=== PATIENT | male | born 1975 | race Caucasian/White ===

== ENCOUNTER 2017-11-02 06:03 | Inpatient (IN) | payer SELFPAY ==
[~2017-11-02] VITALS: Ht 165.1 cm; Wt 76.9 kg
[2017-11-02] MEDS ORDERED: NITROGLYCERIN 0.4MG TABLET SL SL PRN (06:45)
[2017-11-02] MEDS ORDERED: ASPIRIN 81MG TABLET PO ONE (06:45)
[2017-11-02 07:41] LABS: BASOPHILS % 0.4 % (0.0-2.0); EOSINOPHILS % 0.4 % (0.0-5.0); HEMATOCRIT. 43.4 % (42.0-52.0); HEMOGLOBIN. 15.2 g/dL (14.0-18.0); LYMPHOCYTES % 12.4 % (20.0-50.0); MEAN CORPUSCULAR HEMOGLOBIN 32.9 pg (28.0-32.0); MEAN CORPUSCULAR VOLUME 93.8 fL (80.0-94.0); MONOCYTES % 7.8 % (2.0-8.0); RED BLOOD CELL COUNT 4.63 mill/uL (4.7-6.1); RED CELL DISTRIBUTION WIDTH 13.7 % (11.6-14.6)
[2017-11-02 07:43] LABS: CHLORIDE 101 mEq/L (98-107)
[2017-11-02 07:47] LABS: ETHANOL BLOOD < 10 mg/dL
[2017-11-02 07:50] LABS: *AMPHETAMINES SCREEN URINE PRESUMTIVE POSITIVE (NEGATIVE); *BARBITURATES SCREEN URINE NEGATIVE (NEGATIVE); CANNABINOID URINE SCREEN PRESUMTIVE POSITIVE (NEGATIVE); METHADONE URINE SCREEN NEGATIVE (NEGATIVE); OPIATES URINE SCREEN NEGATIVE (NEGATIVE); PHENCYCLIDINE URINE SCREEN NEGATIVE (NEGATIVE)
[2017-11-02 07:51] LABS: *BENZODIAZEPINES SCREEN URINE NEGATIVE (NEGATIVE); *COCAINE SCREEN URINE NEGATIVE (NEGATIVE)
[2017-11-02 08:02] LABS: INR 1.1; PARTIAL THROMBOPLASTIN TIME 27.5 sec (23.4-31.0); PROTHROMBIN TIME 11.2 sec (9.1-11.1)
[2017-11-02 08:22] LABS: PLATELET 161 x1000/uL (130-400)
[2017-11-02] MEDS ORDERED: POTASSIUM CHLORIDE 20MEQ TABLET SR PO ONE (08:30)
[2017-11-02] MEDS ORDERED: ENOXAPARIN 80MG/0.8ML SYR SUBCUT ONE (09:00)
[2017-11-02] MEDS ORDERED: CLONIDINE 0.2MG TABLET PO ONE (11:00)
[2017-11-02 12:00] VITALS: BP 153/100
[2017-11-02 12:39] VITALS: BP 153/100
[2017-11-02] MEDS ORDERED: CLONIDINE 0.1MG TABLET PO NR (14:30)
[2017-11-02 16:00] VITALS: BP 145/94
[2017-11-02 20:00] VITALS: BP 155/90
[2017-11-02 20:31] LABS: CHLORIDE 104 mEq/L (98-107)
[2017-11-03] VITALS (7 sets, daily range): BP systolic 149–166; BP diastolic 97–110
[2017-11-03] MEDS ORDERED: AMLODIPINE 10MG TABLET PO SCH ×2 (09:00)
[2017-11-03] MEDS ORDERED: ASPIRIN 81MG TABLET PO SCH (12:00)
[2017-11-03] MEDS ORDERED: POTASSIUM CHLORIDE 20MEQ TABLET SR PO PRN (14:15)
[2017-11-03 17:27] LABS: BASOPHILS % 0.5 % (0.0-2.0); EOSINOPHILS % 4.1 % (0.0-5.0); LYMPHOCYTES % 22.6 % (20.0-50.0); MEAN CORPUSCULAR HEMOGLOBIN 32.6 pg (28.0-32.0); MEAN CORPUSCULAR VOLUME 93.4 fL (80.0-94.0); MEAN PLATELET VOLUME 8.7 fl (7.4-10.4); MONOCYTES % 10.6 % (2.0-8.0); NEUTROPHILS % 62.2 % (40.0-76.0); PLATELET 151 x1000/uL (130-400); RED BLOOD CELL COUNT 4.61 mill/uL (4.7-6.1); RED CELL DISTRIBUTION WIDTH 13.6 % (11.6-14.6)
[2017-11-03 18:10] LABS: CHLORIDE 105 mEq/L (98-107)
[2017-11-03 18:19] LABS: CREATINE KINASE 726 IU/L (39-308)
[2017-11-03 18:23] LABS: CREATINE KINASE MB FRACTION 7.6 ng/mL (0.5-3.6)
[2017-11-03 18:25] LABS: T4 FREE 0.97 ng/dL (0.76-1.46)
== END 2017-11-03 17:15 | disposition home or self-care (01) | DRG 203 ==
LOC: EDBD 06:22 → ER 06:22 → 8WST 08:53 → EDBEDREQ 08:54 → EDBEDREQTM 08:54 → ENRESERV 11:38
PROVIDERS: ADMIT Family Medicine; ATTEND Family Medicine
DX: R07.9 Chest pain, unspecified (principal); F10.10 Alcohol abuse, uncomplicated; F14.90 Cocaine use, unspecified, uncomplicated; F17.200 Nicotine dependence, unspecified, uncomplicated; F60.89 Other specific personality disorders; I10 Essential (primary) hypertension; Z91.14 Patient's other noncompliance with medication regimen
CPT/HCPCS: 36415; 71045; 80053; 80061; 80305; 82550; 82553; 83036; 83880; 84439; 84443; 84484; 85025; 85379; 85610; 85730; 93005; 93306; 96372; 99291; G0482; J1650

== ENCOUNTER 2019-12-04 23:20 | Inpatient (IN) | payer MEDICAID ==
[~2019-12-04] VITALS: Ht 170.2 cm; Wt 121.1 kg
[2019-12-05] MEDS ORDERED: CLONIDINE 0.1MG TABLET PO ONE
[2019-12-05] MEDS ORDERED: NITROGLYCERIN OINT 1GM/INCH UDPKT TD ONE
[2019-12-05] MEDS ORDERED: ASPIRIN 81MG TABLET PO ONE
[2019-12-05 00:41] LABS: BASOPHILS % 0.6 % (0.0-2.0); EOSINOPHILS % 1.6 % (0.0-5.0); HEMATOCRIT. 44.5 % (42.0-52.0); HEMOGLOBIN. 15.4 g/dL (14.0-18.0); LYMPHOCYTES % 21.4 % (20.0-50.0); MEAN CORPUSCULAR HEMOGLOBIN 31.9 pg (28.0-32.0); MEAN CORPUSCULAR VOLUME 91.9 fL (80.0-94.0); MEAN PLATELET VOLUME 8.8 fl (7.4-10.4); MONOCYTES % 6.3 % (2.0-8.0); NEUTROPHILS % 70.1 % (40.0-76.0); PLATELET 162 x1000/uL (130-400); RED BLOOD CELL COUNT 4.84 mill/uL (4.7-6.1); RED CELL DISTRIBUTION WIDTH 14.2 % (11.6-14.6)
[2019-12-05 00:49] LABS: CHLORIDE 103 mEq/L (98-107)
[2019-12-05 00:51] LABS: INR 1.1; PROTHROMBIN TIME 11.7 sec (9.6-11.0)
[2019-12-05 00:52] LABS: ETHANOL BLOOD < 10 mg/dL
[2019-12-05] MEDS ORDERED: POTASSIUM CHLORIDE 20MEQ TABLET SR PO NR (01:00)
[2019-12-05] MEDS ORDERED: LABETALOL 5MG/ML SYR 20 MG/4 ML SYRINGE IV ONE (02:00)
[2019-12-05 04:00] VITALS: BP 166/111
[2019-12-05 05:38] VITALS: BP 166/111
[2019-12-05] MEDS ORDERED: MORPHINE SULFATE 2 MG/ML CPJ (NOT FOR IM USE) IV PRN (06:00)
[2019-12-05] MEDS ORDERED: LISINOPRIL 20MG TABLET PO SCH ×2 (06:00→09:00)
[2019-12-05] MEDS ORDERED: NITROGLYCERIN OINT 1GM/INCH UDPKT TD NR (06:30)
[2019-12-05 08:00] VITALS: BP 134/77
[2019-12-05] MEDS ORDERED: ENOXAPARIN 40MG/0.4ML SYR SUBCUT SCH ×2 (09:00)
[2019-12-05] MEDS ORDERED: ASPIRIN 325MG EC TABLET PO SCH (09:00)
[2019-12-05] MEDS ORDERED: METOPROLOL TARTRATE 50MG TABLET PO SCH (09:00)
[2019-12-05] MEDS ORDERED: CLONIDINE 0.1MG TABLET PO PRN (09:00)
[2019-12-05] MEDS ORDERED: POTASSIUM CHLORIDE 20MEQ TABLET SR PO SCH (09:00)
[2019-12-05 11:48] VITALS: BP 137/81
[2019-12-05 12:53] LABS: CHLORIDE 103 mEq/L (98-107)
[2019-12-05 12:59] LABS: LDL CHOLESTEROL 105 mg/dL (5-100)
[2019-12-05 13:01] LABS: HDL CHOLESTEROL 51 mg/dL (40-59)
[2019-12-05] MEDS ORDERED: NITROGLYCERIN OINT 1GM/INCH UDPKT TD SCH (14:00)
[2019-12-05 15:39] VITALS: BP 163/99
[2019-12-05 16:13] LABS: BASOPHILS % 0.6 % (0.0-2.0); EOSINOPHILS % 1.9 % (0.0-5.0); HEMATOCRIT. 43.5 % (42.0-52.0); HEMOGLOBIN. 15.1 g/dL (14.0-18.0); LYMPHOCYTES % 19.1 % (20.0-50.0); MEAN CORPUSCULAR HEMOGLOBIN 31.9 pg (28.0-32.0); MEAN CORPUSCULAR VOLUME 92.1 fL (80.0-94.0); MEAN PLATELET VOLUME 9.1 fl (7.4-10.4); MONOCYTES % 6.5 % (2.0-8.0); NEUTROPHILS % 71.9 % (40.0-76.0); PLATELET 173 x1000/uL (130-400); RED BLOOD CELL COUNT 4.72 mill/uL (4.7-6.1); RED CELL DISTRIBUTION WIDTH 14.1 % (11.6-14.6)
[2019-12-06] MEDS ORDERED: LISINOPRIL 40MG TABLET PO SCH (09:00)
[2019-12-06] MEDS ORDERED: ENOXAPARIN 30MG/0.3ML SYR SUBCUT SCH (09:00)
== END 2019-12-05 18:05 | disposition left against medical advice (07) | DRG 199 ==
LOC: ER 23:20 → 6WST 12-05 01:19 → EDBEDREQTM 12-05 01:56 → EDBEDREQ 12-05 01:56 → ENRESERV 12-05 02:23
PROVIDERS: ADMIT Internal Medicine; ATTEND Internal Medicine
DX: I16.0 Hypertensive urgency (principal); I21.A1 Myocardial infarction type 2; K76.0 Fatty (change of) liver, not elsewhere classified; E87.6 Hypokalemia; R74.01 Elevation of levels of liver transaminase levels; I45.10 Unspecified right bundle-branch block; F10.10 Alcohol abuse, uncomplicated; F14.10 Cocaine abuse, uncomplicated; E66.9 Obesity, unspecified; Z53.29 Procedure and treatment not carried out because of patient's decision for other reasons; E78.5 Hyperlipidemia, unspecified; Z91.013 Allergy to seafood; F17.210 Nicotine dependence, cigarettes, uncomplicated; Z71.6 Tobacco abuse counseling; Z71.41 Alcohol abuse counseling and surveillance of alcoholic; Z68.41 Body mass index [BMI] 40.0-44.9, adult; Z71.3 Dietary counseling and surveillance
CPT/HCPCS: 36415; 71045; 76700; 80048; 80053; 80061; 80320; 83036; 83880; 84484; 85025; 93005; 93306; 99291; J1650; J2270; G0480

== ENCOUNTER 2019-12-05 21:11 | Inpatient (IN) | payer MEDICAID, OTHER ==
[~2019-12-05] VITALS: Ht 175.3 cm; Wt 120.0 kg
[2019-12-05 23:29] LABS: CHLORIDE 105 mEq/L (98-107)
[2019-12-05 23:31] LABS: HEMATOCRIT. 42.8 % (42.0-52.0); HEMOGLOBIN. 14.7 g/dL (14.0-18.0); MEAN CORPUSCULAR HEMOGLOBIN 31.7 pg (28.0-32.0); MEAN CORPUSCULAR VOLUME 92.5 fL (80.0-94.0); MEAN PLATELET VOLUME 9.1 fl (7.4-10.4); PLATELET 155 x1000/uL (130-400); RED BLOOD CELL COUNT 4.63 mill/uL (4.7-6.1); RED CELL DISTRIBUTION WIDTH 14.4 % (11.6-14.6)
[2019-12-05 23:33] LABS: ETHANOL BLOOD < 10 mg/dL
[2019-12-05 23:35] LABS: INR 1.1; PROTHROMBIN TIME 11.4 sec (9.6-11.0)
[2019-12-05 23:37] LABS: CREATINE KINASE 733 IU/L (39-308)
[2019-12-05 23:45] LABS: CLARITY URINE CLEAR (CLEAR); COLOR URINE DARK YELLOW (YELLOW); KETONES URINE TRACE (NEGATIVE); LEUKOCYTE ESTERASE URINE TRACE (NEGATIVE); NITRITE URINE NEGATIVE (NEGATIVE); OCCULT BLOOD URINE NEGATIVE (NEGATIVE); PH URINE 5.5 (4.5-8.0); PROTEIN URINE TRACE (NEGATIVE); SPECIFIC GRAVITY URINE 1.034 (1.005-1.030)
[2019-12-05 23:57] LABS: *AMPHETAMINES SCREEN URINE PRESUMTIVE POSITIVE (NEGATIVE); *BARBITURATES SCREEN URINE NEGATIVE (NEGATIVE); *BENZODIAZEPINES SCREEN URINE NEGATIVE (NEGATIVE); *COCAINE SCREEN URINE NEGATIVE (NEGATIVE); METHADONE URINE SCREEN NEGATIVE (NEGATIVE)
[2019-12-05 23:58] LABS: CANNABINOID URINE SCREEN PRESUMTIVE POSITIVE (NEGATIVE); OPIATES URINE SCREEN PRESUMTIVE POSITIVE (NEGATIVE); PHENCYCLIDINE URINE SCREEN NEGATIVE (NEGATIVE)
[2019-12-06 02:41] VITALS: BP 158/99
[2019-12-06 03:36] LABS: PLATELET ESTIMATE NORMAL
== END 2019-12-06 04:20 | disposition left against medical advice (07) | DRG 351 ==
LOC: ER 22:37 → 6WST 12-06 00:26 → EDBEDREQ 12-06 00:35 → EDBEDREQDT 12-06 00:35 → EDBEDREQTM 12-06 00:35 → EDBEDREQ 12-06 00:37 → ENRESERV 12-06 02:23
PROVIDERS: ADMIT Internal Medicine; ATTEND Internal Medicine
DX: M62.82 Rhabdomyolysis (principal); R06.02 Shortness of breath; E87.6 Hypokalemia; I10 Essential (primary) hypertension; K76.0 Fatty (change of) liver, not elsewhere classified; E78.5 Hyperlipidemia, unspecified; R53.1 Weakness; R74.01 Elevation of levels of liver transaminase levels; E66.9 Obesity, unspecified; Z71.6 Tobacco abuse counseling; Z71.41 Alcohol abuse counseling and surveillance of alcoholic; Z71.3 Dietary counseling and surveillance; I25.2 Old myocardial infarction; Z91.013 Allergy to seafood; F15.10 Other stimulant abuse, uncomplicated; Z68.39 Body mass index [BMI] 39.0-39.9, adult; R77.8 Other specified abnormalities of plasma proteins
CPT/HCPCS: 36415; 71045; 80053; 80305; 80320; 81003; 82550; 83880; 84484; 85025; 93005; 99285; G0480

== ENCOUNTER 2020-05-06 00:38 | Inpatient (IN) | payer MEDICAID, OTHER ==
[~2020-05-06] VITALS: Ht 325.1 cm; Wt 117.9 kg
[2020-05-06] MEDS ORDERED: MORPHINE SULFATE 4 MG/ML CPJ (NOT FOR IM USE) IV ONE (01:15)
[2020-05-06 01:44] LABS: BASOPHILS % 0.5 % (0.0-2.0); EOSINOPHILS % 1.4 % (0.0-5.0); HEMATOCRIT. 43.9 % (42.0-52.0); HEMOGLOBIN. 15.2 g/dL (14.0-18.0); LYMPHOCYTES % 25.3 % (20.0-50.0); MEAN CORPUSCULAR HEMOGLOBIN 31.5 pg (28.0-32.0); MEAN CORPUSCULAR VOLUME 90.6 fL (80.0-94.0); MEAN PLATELET VOLUME 8.5 fl (7.4-10.4); MONOCYTES % 11.6 % (2.0-8.0); NEUTROPHILS % 61.2 % (40.0-76.0); PLATELET 182 x1000/uL (130-400); RED BLOOD CELL COUNT 4.84 mill/uL (4.7-6.1); RED CELL DISTRIBUTION WIDTH 14.4 % (11.6-14.6)
[2020-05-06 01:46] LABS: CHLORIDE 101 mEq/L (98-107)
[2020-05-06 01:49] LABS: ETHANOL BLOOD < 10 mg/dL
[2020-05-06 01:49] LABS: *AMPHETAMINES SCREEN URINE PRESUMTIVE POSITIVE (NEGATIVE); *BARBITURATES SCREEN URINE NEGATIVE (NEGATIVE); *BENZODIAZEPINES SCREEN URINE NEGATIVE (NEGATIVE); *COCAINE SCREEN URINE NEGATIVE (NEGATIVE); CANNABINOID URINE SCREEN PRESUMTIVE POSITIVE (NEGATIVE); OPIATES URINE SCREEN NEGATIVE (NEGATIVE); PHENCYCLIDINE URINE SCREEN NEGATIVE (NEGATIVE)
[2020-05-06 01:50] LABS: METHADONE URINE SCREEN NEGATIVE (NEGATIVE)
[2020-05-06] MEDS ORDERED: IOHEXOL-300 100 ML BOTTLE ONE (02:26)
[2020-05-06] MEDS ORDERED: LISINOPRIL 40MG TABLET PO ONE (02:30)
[2020-05-06] MEDS ORDERED: LABETALOL HCL 20MG/4ML CARPUJECT IV ONE (02:30)
[2020-05-06] MEDS ORDERED: ASPIRIN 325MG EC TABLET PO NR (02:30)
[2020-05-06] MEDS ORDERED: LABETALOL 5MG/ML SYR 20 MG/4 ML SYRINGE IV NR ×2 (02:30→04:00)
[2020-05-06] MEDS ORDERED: LORAZEPAM 1MG TABLET PO NR (04:00)
[2020-05-06] MEDS ORDERED: DOCUSATE SODIUM 100MG CAPSULE PO PRN (07:30)
[2020-05-06] MEDS ORDERED: LORAZEPAM 0.5MG TABLET PO PRN (07:30)
[2020-05-06] MEDS ORDERED: MAGNESIUM/ALUMINUM HYDROXIDE/SIMETHICONE 30ML UDC PO PRN (07:30)
[2020-05-06] MEDS ORDERED: ENOXAPARIN 40MG/0.4ML SYR SUBCUT SCH (07:30)
[2020-05-06] MEDS ORDERED: ACETAMINOPHEN 325MG TABLET PO PRN ×2 (07:30)
[2020-05-06] MEDS ORDERED: ONDANSETRON HCL 4MG/2ML INJ IV PRN (07:30)
[2020-05-06] MEDS ORDERED: IPRATROPIUM/ALBUTEROL 0.5-3(2.5)MG/3ML NEB NEB PRN (07:30)
[2020-05-06] MEDS ORDERED: KETOROLAC 15MG/ML VIAL IV PRN (07:30)
[2020-05-06] MEDS ORDERED: GUAIFENESIN 200MG/10ML SUGAR FREE UDC PO PRN (07:30)
[2020-05-06 08:28] LABS: VITAMIN B12 SERUM 217 pg/mL (211-911)
[2020-05-06 08:30] VITALS: BP 148/91
[2020-05-06 08:36] LABS: FOLIC ACID (FOLATE) SERUM > 20.00 ng/mL (>5.38)
[2020-05-06] MEDS: ASPIRIN 325MG EC TABLET PO SCH (09:54)
[2020-05-06] MEDS: ENOXAPARIN 30MG/0.3ML SYR SUBCUT SCH ×2 (09:54→20:17)
[2020-05-06] MEDS: FAMOTIDINE 20MG TABLET PO SCH ×2 (09:54→20:17)
[2020-05-06 10:00] VITALS: BP 148/91
[2020-05-06] MEDS ORDERED: POTASSIUM CHLORIDE 20MEQ/PACKET PO NR (10:15)
[2020-05-06 11:45] LABS: CREATINE KINASE MB FRACTION 13.6 ng/mL (0.5-3.6)
[2020-05-06 12:00] VITALS: BP 134/70
[2020-05-06] MEDS ORDERED: KCL 20MEQ/100ML PREMIX 100 ML IV NR (12:00)
[2020-05-06] MEDS: DILTIAZEM HCL 60MG TABLET PO SCH ×2 (12:14→18:06)
[2020-05-06] MEDS ORDERED: LISI2.5T47 MT (15:13)
[2020-05-06 15:31] VITALS: BP 164/93
[2020-05-06] MEDS: CLONIDINE 0.1MG TABLET PO PRN (15:37)
[2020-05-06 19:56] VITALS: BP 156/85
[2020-05-06 21:00] VITALS: BP 138/77
[2020-05-06] MEDS ORDERED: PNEUMOCOCCAL 23-VAL P-SAC VAC 0.5 ML IM ONE (21:00)
[2020-05-06] MEDS ORDERED: ZOLPIDEM TARTRATE 5MG TABLET PO PRN (21:00)
[2020-05-06] MEDS: NITROGLYCERIN 0.4MG TABLET SL SL PRN (21:00)
[2020-05-06] MEDS ORDERED: INFLUENZA VACCINE 05/PF 0.5 ML VIAL IM ONE (21:00)
[2020-05-07] VITALS: BP 142/80
[2020-05-07 04:00] VITALS: BP 119/80
[2020-05-07] MEDS: DILTIAZEM HCL 60MG TABLET PO SCH ×4 (05:27→17:11)
[2020-05-07 08:00] VITALS: BP 125/79
[2020-05-07] MEDS: ASPIRIN 325MG EC TABLET PO SCH (08:36)
[2020-05-07] MEDS: FAMOTIDINE 20MG TABLET PO SCH ×2 (08:36→21:13)
[2020-05-07] MEDS: ENOXAPARIN 30MG/0.3ML SYR SUBCUT SCH ×2 (08:37→21:14)
[2020-05-07 11:26] LABS: CREATINE KINASE MB FRACTION 8.8 ng/mL (0.5-3.6)
[2020-05-07 12:00] VITALS: BP 110/77
[2020-05-07 16:00] VITALS: BP 112/68
[2020-05-07] MEDS: NITROGLYCERIN 0.4MG TABLET SL SL PRN (17:12)
[2020-05-07 20:00] VITALS: BP 158/102
[2020-05-07] MEDS: CLONIDINE 0.1MG TABLET PO PRN (22:51)
[2020-05-08] VITALS: BP 146/98
[2020-05-08 04:00] VITALS: BP 139/84
[2020-05-08] MEDS: DILTIAZEM HCL 60MG TABLET PO SCH ×3 (06:43→12:36)
[2020-05-08 08:00] VITALS: BP 135/90
[2020-05-08] MEDS: ENOXAPARIN 30MG/0.3ML SYR SUBCUT SCH (09:14)
[2020-05-08] MEDS: FAMOTIDINE 20MG TABLET PO SCH (09:14)
[2020-05-08] MEDS: ASPIRIN 325MG EC TABLET PO SCH (09:14)
[2020-05-08 09:34] VITALS: BP 135/90
== END 2020-05-08 13:40 | disposition home or self-care (01) | DRG 812 ==
LOC: ER 00:57 → 8WST 03:55 → EDBEDREQ 03:58 → ENRESERV 07:20 → ER 08:20 → 8WST 08:58
PROVIDERS: ADMIT Internal Medicine; ATTEND Internal Medicine
DX: T43.621A Poisoning by amphetamines, accidental (unintentional), initial encounter (principal); I21.4 Non-ST elevation (NSTEMI) myocardial infarction; I10 Essential (primary) hypertension; E66.01 Morbid (severe) obesity due to excess calories; I16.1 Hypertensive emergency; E87.6 Hypokalemia; F15.10 Other stimulant abuse, uncomplicated; F17.210 Nicotine dependence, cigarettes, uncomplicated; M62.82 Rhabdomyolysis; I20.1 Angina pectoris with documented spasm; Z68.1 Body mass index [BMI] 19.9 or less, adult; Z91.013 Allergy to seafood; Z71.51 Drug abuse counseling and surveillance of drug abuser; Y92.89 Other specified places as the place of occurrence of the external cause
CPT/HCPCS: 36415; 71045; 71275; 74174; 80053; 80061; 80305; 80320; 82550; 82553; 82607; 82746; 83540; 83550; 83880; 84484; 85025; 90686; 90732; 93005; 93306; 93970; 99291; J1650; J2270; J3480; J3490; J7040; Q9967; G0480

== ENCOUNTER 2020-07-22 23:49 | Emergency (ER) | payer MEDICAID ==
[~2020-07-22] VITALS: Ht 177.8 cm; Wt 127.0 kg
[~2020-07-22 23:49] MED LIST: LISI2.5T47 MT
[2020-07-22 23:51] VITALS: BP 150/100
[2020-07-23 03:18] LABS: BASOPHILS % 0.8 % (0.0-2.0); EOSINOPHILS % 0.5 % (0.0-5.0); HEMATOCRIT. 43.1 % (42.0-52.0); HEMOGLOBIN. 14.8 g/dL (14.0-18.0); MEAN CORPUSCULAR HEMOGLOBIN 31.2 pg (28.0-32.0); MEAN CORPUSCULAR VOLUME 90.9 fL (80.0-94.0); MEAN PLATELET VOLUME 8.9 fl (7.4-10.4); MONOCYTES % 11.4 % (2.0-8.0); NEUTROPHILS % 62.3 % (40.0-76.0); PLATELET 180 x1000/uL (130-400); RED BLOOD CELL COUNT 4.74 mill/uL (4.7-6.1); RED CELL DISTRIBUTION WIDTH 14.9 % (11.6-14.6)
[2020-07-23 03:22] LABS: CHLORIDE 104 mEq/L (98-107)
[2020-07-23] MEDS ORDERED: ASPIRIN 81MG TABLET PO ONE (03:45)
[2020-07-23] MEDS ORDERED: POTASSIUM CHLORIDE 20MEQ TABLET SR PO SCH (06:00)
[2020-07-23] MEDS ORDERED: ACETAMINOPHEN 325MG TABLET PO PRN (06:00)
[2020-07-23 06:30] LABS: CLARITY URINE CLEAR (CLEAR); COLOR URINE YELLOW (YELLOW); KETONES URINE 1+ (NEGATIVE); LEUKOCYTE ESTERASE URINE NEGATIVE (NEGATIVE); NITRITE URINE NEGATIVE (NEGATIVE); OCCULT BLOOD URINE NEGATIVE (NEGATIVE); PH URINE 5.5 (4.5-8.0); PROTEIN URINE 1+ (NEGATIVE); SPECIFIC GRAVITY URINE 1.033 (1.005-1.030)
[2020-07-23 07:15] LABS: *AMPHETAMINES SCREEN URINE PRESUMTIVE POSITIVE (NEGATIVE); *BARBITURATES SCREEN URINE NEGATIVE (NEGATIVE); *BENZODIAZEPINES SCREEN URINE NEGATIVE (NEGATIVE); *COCAINE SCREEN URINE NEGATIVE (NEGATIVE)
[2020-07-23 07:16] LABS: CANNABINOID URINE SCREEN PRESUMTIVE POSITIVE (NEGATIVE); METHADONE URINE SCREEN NEGATIVE (NEGATIVE); OPIATES URINE SCREEN NEGATIVE (NEGATIVE); PHENCYCLIDINE URINE SCREEN NEGATIVE (NEGATIVE)
[2020-07-23] MEDS ORDERED: DILTIAZEM HCL 30MG TABLET PO SCH (18:00)
== END 2020-07-23 07:03 | disposition left against medical advice (07) ==
LOC: ER 23:49 → CANBEDREQ 07-23 20:14
DX: R07.89 Other chest pain (principal); I11.9 Hypertensive heart disease without heart failure; E87.6 Hypokalemia; F15.10 Other stimulant abuse, uncomplicated; E80.6 Other disorders of bilirubin metabolism; F16.10 Hallucinogen abuse, uncomplicated; M79.18 Myalgia, other site; R68.83 Chills (without fever); F12.10 Cannabis abuse, uncomplicated; Z71.51 Drug abuse counseling and surveillance of drug abuser; Z71.41 Alcohol abuse counseling and surveillance of alcoholic; Z91.19 Patient's noncompliance with other medical treatment and regimen
CPT/HCPCS: 36415; 71045; 80053; 80305; 81003; 83880; 84484; 85025; 93005; 99285; Z7610

== ENCOUNTER 2020-08-10 12:44 | Emergency (ER) | payer MEDICAID ==
[~2020-08-10] VITALS: Ht 170.2 cm; Wt 104.0 kg
[2020-08-10 13:28] LABS: BASOPHILS % 0.3 % (0.0-2.0); EOSINOPHILS % 1.2 % (0.0-5.0); HEMATOCRIT. 40.3 % (42.0-52.0); HEMOGLOBIN. 14.2 g/dL (14.0-18.0); LYMPHOCYTES % 26.2 % (20.0-50.0); MEAN CORPUSCULAR HEMOGLOBIN 31.8 pg (28.0-32.0); MEAN CORPUSCULAR VOLUME 90.3 fL (80.0-94.0); MEAN PLATELET VOLUME 8.4 fl (7.4-10.4); MONOCYTES % 8.7 % (2.0-8.0); NEUTROPHILS % 63.6 % (40.0-76.0); PLATELET 152 x1000/uL (130-400); RED BLOOD CELL COUNT 4.46 mill/uL (4.7-6.1); RED CELL DISTRIBUTION WIDTH 14.9 % (11.6-14.6)
[2020-08-10 13:29] LABS: CHLORIDE 108 mEq/L (98-107)
[2020-08-10 13:34] LABS: ETHANOL BLOOD 182 mg/dL
[2020-08-10 16:02] VITALS: BP 166/77
== END 2020-08-10 16:23 | disposition home or self-care (01) ==
LOC: ER 12:53
DX: R07.89 Other chest pain (principal); F10.129 Alcohol abuse with intoxication, unspecified; Y90.6 Blood alcohol level of 120-199 mg/100 ml; M25.562 Pain in left knee; M25.561 Pain in right knee; R20.0 Anesthesia of skin; F15.10 Other stimulant abuse, uncomplicated; F12.10 Cannabis abuse, uncomplicated; I11.9 Hypertensive heart disease without heart failure; I25.2 Old myocardial infarction
CPT/HCPCS: 36415; 71045; 80053; 80320; 83880; 84484; 85025; 93005; 99285; G0480

== ENCOUNTER 2020-10-12 20:49 | Emergency (ER) | payer MEDICAID ==
[~2020-10-12] VITALS: Ht 172.7 cm; Wt 114.0 kg
[2020-10-12] MEDS ORDERED: ACETAMINOPHEN 325MG TABLET PO STA (23:07)
[2020-10-12] MEDS ORDERED: SODIUM CHLORIDE 0.9% 1,000 ML IV ONE (23:15)
[2020-10-12 23:51] LABS: BASOPHILS % 0.8 % (0.0-2.0); EOSINOPHILS % 6.1 % (0.0-5.0); HEMATOCRIT. 42.1 % (42.0-52.0); HEMOGLOBIN. 14.4 g/dL (14.0-18.0); LYMPHOCYTES % 41.4 % (20.0-50.0); MEAN CORPUSCULAR HEMOGLOBIN 31.5 pg (28.0-32.0); MEAN CORPUSCULAR VOLUME 91.8 fL (80.0-94.0); MEAN PLATELET VOLUME 9.4 fl (7.4-10.4); MONOCYTES % 7.4 % (2.0-8.0); NEUTROPHILS % 44.3 % (40.0-76.0); PLATELET 287 x1000/uL (130-400); RED BLOOD CELL COUNT 4.58 mill/uL (4.7-6.1); RED CELL DISTRIBUTION WIDTH 15.9 % (11.6-14.6)
[2020-10-12 23:52] LABS: CHLORIDE 108 mEq/L (98-107)
[2020-10-13 00:02] LABS: ETHANOL BLOOD 299 mg/dL
[2020-10-13 00:31] LABS: CLARITY URINE CLEAR (CLEAR); COLOR URINE YELLOW (YELLOW); KETONES URINE TRACE (NEGATIVE); LEUKOCYTE ESTERASE URINE NEGATIVE (NEGATIVE); NITRITE URINE NEGATIVE (NEGATIVE); OCCULT BLOOD URINE NEGATIVE (NEGATIVE); PH URINE 5.5 (4.5-8.0); PROTEIN URINE NEGATIVE (NEGATIVE); SPECIFIC GRAVITY URINE 1.014 (1.005-1.030); UROBILINOGEN URINE 0.2 E.U./dL (0.2-1.0)
[2020-10-13 00:54] LABS: *AMPHETAMINES SCREEN URINE PRESUMTIVE POSITIVE (NEGATIVE); *BARBITURATES SCREEN URINE NEGATIVE (NEGATIVE); *BENZODIAZEPINES SCREEN URINE NEGATIVE (NEGATIVE); *COCAINE SCREEN URINE NEGATIVE (NEGATIVE); METHADONE URINE SCREEN NEGATIVE (NEGATIVE); OPIATES URINE SCREEN NEGATIVE (NEGATIVE); PHENCYCLIDINE URINE SCREEN NEGATIVE (NEGATIVE)
[2020-10-13 00:55] LABS: CANNABINOID URINE SCREEN PRESUMTIVE POSITIVE (NEGATIVE)
[2020-10-13] MEDS ORDERED: IBUP-2030 MT (06:03)
[2020-10-13] MEDS ORDERED: IBUPROFEN 800MG TABLET PO ONE (06:15)
[2020-10-13 06:31] VITALS: BP 160/79
[2020-10-21] MEDS ORDERED: AMLO10TA80 PO (15:55)
[2020-10-21] MEDS ORDERED: LOSA100T3 PO (15:55)
== END 2020-10-13 06:30 | disposition home or self-care (01) ==
LOC: ER 20:49
DX: F10.129 Alcohol abuse with intoxication, unspecified (principal); Y90.8 Blood alcohol level of 240 mg/100 ml or more; M54.5 Low back pain; M25.552 Pain in left hip; M25.562 Pain in left knee; F15.10 Other stimulant abuse, uncomplicated; R03.0 Elevated blood-pressure reading, without diagnosis of hypertension; F12.90 Cannabis use, unspecified, uncomplicated; Z91.81 History of falling
CPT/HCPCS: 36415; 70450; 72125; 72128; 72131; 73502; 73562; 80053; 80305; 80320; 81003; 83690; 85025; 99285; J7030; G0480

== ENCOUNTER 2020-11-27 05:07 | Emergency (ER) | payer MEDICAID ==
[~2020-11-27] VITALS: Ht 167.6 cm; Wt 109.0 kg
[~2020-11-27 05:07] MED LIST changes: +AMLO10TA80 PO; +ASPI-986 MT; +HYDR100T26 PO; +IBUP-2030 MT; -LISI2.5T47 MT; +LOSA100T3 PO; +METO100T16 PO; +THIA100T72 PO
[2020-11-27] MEDS ORDERED: MAGNESIUM/ALUMINUM HYDROXIDE/SIMETHICONE 30ML UDC PO STA (05:18)
[2020-11-27 05:34] LABS: BASOPHILS % 0.7 % (0.0-2.0); EOSINOPHILS % 6.1 % (0.0-5.0); HEMATOCRIT. 40.9 % (42.0-52.0); LYMPHOCYTES % 25.7 % (20.0-50.0); MEAN CORPUSCULAR HEMOGLOBIN 30.6 pg (28.0-32.0); MEAN CORPUSCULAR VOLUME 89.4 fL (80.0-94.0); MONOCYTES % 6.9 % (2.0-8.0); NEUTROPHILS % 60.6 % (40.0-76.0); PLATELET 236 x1000/uL (130-400); RED BLOOD CELL COUNT 4.57 mill/uL (4.7-6.1); RED CELL DISTRIBUTION WIDTH 14.8 % (11.6-14.6)
[2020-11-27 05:39] LABS: CHLORIDE 106 mEq/L (98-107)
[2020-11-27] MEDS ORDERED: FAMOTIDINE 20MG TABLET PO ONE (06:45)
[2020-11-27] MEDS ORDERED: ACETAMINOPHEN 325MG TABLET PO ONE (06:45)
[2020-11-27] MEDS ORDERED: ASPIRIN 325MG EC TABLET PO ONE (08:00)
[2020-11-27] MEDS ORDERED: NITROGLYCERIN 0.4MG TABLET SL SL ONE ×2 (08:00→09:15)
[2020-11-27 08:54] VITALS: BP 160/99
[2020-11-27] MEDS ORDERED: MORPHINE SULFATE 2 MG/ML CPJ (NOT FOR IM USE) IV ONE (09:15)
[2020-11-27] MEDS ORDERED: CLOPIDOGREL 75MG TABLET PO ONE (09:15)
== END 2020-11-27 09:49 | disposition left against medical advice (07) ==
LOC: ER 05:17 → CANBEDREQ 09:47 → ER 09:49
DX: I21.4 Non-ST elevation (NSTEMI) myocardial infarction (principal); M17.0 Bilateral primary osteoarthritis of knee; I10 Essential (primary) hypertension; R74.01 Elevation of levels of liver transaminase levels; E11.9 Type 2 diabetes mellitus without complications; F17.290 Nicotine dependence, other tobacco product, uncomplicated; F15.10 Other stimulant abuse, uncomplicated; Z79.899 Other long term (current) drug therapy
CPT/HCPCS: 36415; 71045; 73562; 80053; 84484; 85025; 99284; J2270